=== PATIENT | female | born 1990 | race Caucasian/White ===

== ENCOUNTER 2017-07-21 01:25 | Emergency (ER) | payer OTHER ==
--- NOTE | 2017-07-21 01:39 | EDPHY ---
H & P HPI/ROS: Chief Complaint: Vaginal bleeding HPI: 27-year-old G0 warming began having vaginal bleeding about 2 hr ago. Patient was sitting on the couch when she felt she needed urinates. She stood up and had a gush of blood and passed a moderate size clot. Proceeded to soaked 2 pads over the course of the next hour and a half. She is status post a cone biopsy 7 days ago. After that time she ate initially had some spotting was not had any bleeding for couple of weeks. She has a Mirena IUD which was placed in December of this year. She she is having some lower pelvic cramping. Patient states that when she stood up to come to the hospital she felt lightheaded did not have a loss of consciousness. No nausea or vomiting. No history of blood clotting disorders. ROS: 10 point Review of Systems is negative except as noted in the HPI. PMH: Attention deficit hyperactivity disorder Social History: No smoking, occasional alcohol, occasional marijuana Family History: non-contributory Physical Exam: Gen: Awake, Alert, No Distress HEENT: Nose: no rhinorrhea Eyes: PERRLA, EOMI Mouth: Moist mucosa Neck: Supple, no JVD Chest: nontender, lungs clear to auscultation Heart: S1, S2 normal, no murmur Abd: Soft, mild bilateral lower adnexal tenderness, no guarding Back: no CVA tenderness, no midline tenderness Ext: no edema, non-tender Skin: no rash Neuro: CN II-XII intact, Sensation grossly intact, Strength 5/5 in bilateral upper and lower extremities Constitutional: Initial Vital Signs Temperature (C) 36.9 C 07/21/17 01:25 Heart Rate 116 H 07/21/17 01:25 Respiratory Rate 18 07/21/17 01:25 Blood Pressure 107/60 07/21/17 01:25 O2 Sat (%) 96 07/21/17 01:25 O2 Delivery Mode Room Air Allergies/Adverse Reactions: No Known Allergies Allergy (Unverified 07/21/17 01:41) Home Medications: Medication Instructions Recorded Amphet Asp and D/Amphet [Adderall 20 mg PO DAILY 07/21/17 20 mg (*)] Lisdexamfetamine Dimesylate 40 mg PO DAILY 07/21/17 [Vyvanse] Medical Decision Making ED Course/Re-evaluation: 27-year-old who is 15 days status post cone biopsy bleeding. She has been observed in the emergency department for couple hours has no active bleeding but she has does have some clot at the antritis. I have not performed a speculum exam for 50 sludging any clots she might have. Symptoms are consistent with postsurgical bleeding. She is not . She has minimal abdominal tenderness on repeat examination. Her CBC is normal. Her hemodynamics are normal. She is ambulating unassisted. Will discharge her with follow up with her OBGYN. She has been cautioned that she should return emergency department should her bleeding return and become heavy again. She also return for any lightheadedness, fainting, pain, or any other concerns. - Data Points Laboratory Results: Laboratory Results 07/21/17 01:20 07/21/17 01:20 07/21/17 07/21/17 07/21/17 01:20 01:20 01:20 WBC 10.98 10^3/uL H 10^3/uL (3.80-9.50) RBC 4.29 10^6/uL 10^6/uL (4.18-5.33) Hgb 12.8 g/dL g/dL (12.6-16.3) Hct 36.7 % L % (38.0-47.0) MCV 85.5 fL fL (81.5-99.8) MCH 29.8 pg pg (27.9-34.1) MCHC 34.9 g/dL g/dL (32.4-36.7) RDW 11.6 % % (11.5-15.2) Plt Count 318 10^3/uL 10^3/uL (150-400) MPV 10.1 fL fL (8.7-11.7) Neut % (Auto) 54.6 % % (39.3-74.2) Lymph % (Auto) 34.6 % % (15.0-45.0) [place] % (Auto) 8.5 % % (4.5-13.0) Eos % (Auto) 1.4 % % (0.6-7.6) Baso % (Auto) 0.7 % % (0.3-1.7) Nucleat RBC Rel Count 0.0 % % (0.0-0.2) Absolute Neuts (auto) 6.00 10^3/uL 10^3/uL (1.70-6.50) Absolute Lymphs (auto) 3.80 10^3/uL H 10^3/uL (1.00-3.00) Absolute Monos (auto) 0.93 10^3/uL H 10^3/uL (0.30-0.80) Absolute Eos (auto) 0.15 10^3/uL 10^3/uL (0.03-0.40) Absolute Basos (auto) 0.08 10^3/uL 10^3/uL (0.02-0.10) Absolute Nucleated RBC 0.00 10^3/uL 10^3/uL (0-0.01) Immature Gran % 0.2 % % (0.0-1.1) Immature Gran # 0.02 10^3/uL 10^3/uL (0.00-0.10) Sodium 144 mEq/L mEq/L (134-144) Potassium 4.0 mEq/L mEq/L (3.5-5.2) Chloride 103 mEq/L mEq/L (97-110) Carbon Dioxide 25 mEq/l mEq/l (22-31) Anion Gap 16 mEq/L mEq/L (8-16) BUN 15 mg/dL mg/dL (7-23) Creatinine 0.9 mg/dL mg/dL (0.6-1.0) Estimated GFR > 60 Glucose 124 mg/dL H mg/dL (70-100) Calcium 9.8 mg/dL mg/dL (8.5-10.4) Beta HCG, Qual NEGATIVE Departure - Departure Disposition: Home, Routine, Self-Care Clinical Impression: Vaginal bleeding Condition: Good Additional Instructions: Follow up with your OBGYN doctor on Sunday. Return to the emergency department for return of bleeding if you're soaking more than 2 pads an hour for greater than 2 hr. Return for lightheadedness, fainting, worsening pain, or any other concerns. Referrals: Patient,NotPresent [Unknown] - As per Instructions
[2017-07-21 01:41] VITALS: TEMP 98.4
[2017-07-21 01:42] LABS: % IMMATURE GRANULYOCYTES 0.2 % (0.0-1.1); ABSOLUTE IMMATURE GRANULOCYTES 0.02 10^3/uL (0.00-0.10); ADD DIFF? NO; ADD MORPH? NO; ADD SCAN? NO; ATYPICAL LYMPHOCYTE FLAG 40 (0-99); FRAGMENT RBC FLAG 0 (0-99); HEMATOCRIT 36.7 % (38.0-47.0); HEMOGLOBIN 12.8 g/dL (12.6-16.3); LEFT SHIFT FLG 0 (0-99); LIPEMIA HEMOLYSIS FLAG 90 (0-99); MEAN CELL HEMOGLOBIN 29.8 pg (27.9-34.1); MEAN CELL HEMOGLOBIN CONCENTR. 34.9 g/dL (32.4-36.7); MEAN CELL VOLUME 85.5 fL (81.5-99.8); MEAN PLATELET VOLUME 10.1 fL (8.7-11.7); PLATELET CLUMPS FLAG 10 (0-99); PLATELET COUNT 318 10^3/uL (150-400); RED BLOOD CELL COUNT 4.29 10^6/uL (4.18-5.33); RED CELL DISTRIBUTION WIDTH 11.6 % (11.5-15.2)
[2017-07-21 01:55] LABS: ANION GAP 16 mEq/L (8-16); CALCIUM 9.8 mg/dL (8.5-10.4); CARBON DIOXIDE 25 mEq/l (22-31); CHLORIDE 103 mEq/L (97-110); CREATININE 0.9 mg/dL (0.6-1.0); GLOMERULAR FILTRATION RATE > 60; GLUCOSE 124 mg/dL (70-100); SODIUM 144 mEq/L (134-144)
[2017-07-21 03:14] VITALS: BP 119/85; PULSE 91; RESP 16; O2SAT 98
== END 2017-07-21 03:32 | disposition home or self-care (01) ==
LOC: EDUNIT#
DX: N93.9 Abnormal uterine and vaginal bleeding, unspecified (principal)